=== PATIENT | male | born 1990 | race American Indian/Alaskan Native ===

== ENCOUNTER 2018-10-10 18:06 | Emergency (ER) | payer MEDICARE ==
--- NOTE | 2018-10-10 18:16 | Emergency Department Report ---
Blank Doc - Documentation Documentation: This is a 27-year-old male that presents with right eyelid lac. Stated was pl aying with friend and was accidental hit. Denies any headache or LOC. This initial assessment/diagnostic orders/clinical plan/treatment(s) is/are subject to change based on patient's health status, clinical progression and re- assessment by fellow clinical providers in the ED. Further treatment and workup at subsequent clinical providers discretion. Patient/guardians urged not to elope from the ED as their condition may be serious if not clinically assessed and managed. Initial orders include: 1- Patient sent to [facility] for further evaluation and treatment
--- NOTE | 2018-10-10 22:34 | Emergency Department Report ---
ED Laceration HPI - HPI Chief Complaint: Laceration/Recheck/Suture Stated Complaint: RT EYE INJURY Time Seen by Provider: 10/10/18 18:15 Location: Head Severity: mild Tetanus Status: Up to Date Laceration Symptoms: No Foreign Body Sensation, No Numbness, No Weakness, No Pain Other History: This is a 27-year-old male that presents with right eyelid lac. Stated was playing with friend and was accidental hit. Denies any headache or LOC. ED Review of Systems ROS: Stated complaint: RT EYE INJURY Other details as noted in HPI Constitutional: denies: chills, fever Eyes: other (eye lid laceration). denies: eye pain, eye discharge, vision change ENT: denies: ear pain, throat pain Respiratory: denies: cough, shortness of breath, wheezing Cardiovascular: denies: chest pain, palpitations Endocrine: no symptoms reported Gastrointestinal: denies: abdominal pain, nausea, diarrhea Genitourinary: denies: urgency, dysuria Musculoskeletal: denies: back pain, joint swelling, arthralgia Skin: denies: rash, lesions Neurological: denies: headache, weakness, paresthesias Psychiatric: denies: anxiety, depression Hematological/Lymphatic: denies: easy bleeding, easy bruising ED Past Medical Hx - Social History Smoking Status: Never Smoker Substance Use Type: None - Medications Home Medications: Home Medications Medication Instructions Recorded Confirmed Last Taken Type Tramadol HCl [Ultram] 50 mg PO Q6H #12 tablet 10/10/18 Unknown Rx Laceration Physical Exam - Exam General: Vital signs noted. No distress. Alert and acting appropriately. Wound Length (cm): 1 Laceration Location: Head (right eye lid) Laceration Exam: Yes Normal Distal CMS, No Foreign Body, No Exposed Tendon, Vessel, or Nerve, No Tendon Injury ED Course Vital Signs 10/10/18 18:16 Temperature 97.7 F Pulse Rate 71 Respiratory 20 Rate Blood Pressure 128/73 Blood Pressure 128/73 [Right] O2 Sat by Pulse 98 Oximetry - Laceration /Wound Repair Right Eye Wound Location: face Wound Length (cm): 1 Wound's Depth, Shape: superficial Wound Explored: clean Irrigated w/ Saline (ccs): 10 Betadine Prep?: Yes Volume Anesthetic (ccs): 0 Wound Debrided: none required Wound Repaired With: Dermabond Sterile Dressing Applied?: No Progress: right eyelid laceration less than 1 cm superficial no eye evolvmenet pt is perrla eomi visual acuity 20/20 bilat no drainag no bleeding, wound closed with dermabone , dc to home with nsaid follow up with pcp there is eye entrapment no periorbital edema or echymosis no headache no neck pain , pt for dc to home in s tablecondtion at this time, patient tolerated procedure. Minimal distress R bleeding is controlled Critical care attestation.: If time is entered above; I have spent that time in minutes in the direct care of this critically ill patient, excluding procedure time. ED Disposition Clinical Impression: Eyelid laceration Qualifiers: Encounter type: initial encounter Laterality: right Qualified Code(s): S01.111A - Laceration without foreign body of right eyelid and periocular area, initial encounter Disposition: DC-01 TO HOME OR SELFCARE Is pt being admited?: No Does the pt Need Aspirin: No Condition: Stable Instructions: Laceration (ED), Skin Adhesive Care (ED) Prescriptions: Tramadol HCl [Ultram] 50 mg PO Q6H #12 tablet Referrals: [facility] [Outside] - 3-5 Days Forms: Work/School Release Form(ED) Time of Disposition: 22:35
== END 2018-10-10 22:44 | disposition home or self-care (01) ==
LOC: ED 18:06
CPT/HCPCS: 99282